=== PATIENT | male | born 1970 | race Caucasian/White ===

== ENCOUNTER → 2016-09-05 | Outpatient (CLI) | payer MEDICARE, OTHER | LOC: KOH-I 11:03 | DX: M25.512 Pain in left shoulder (principal); I10 Essential (primary) hypertension | CPT/HCPCS: 73030 ==

== ENCOUNTER → 2016-09-13 | Outpatient (CLI) | payer MEDICARE, OTHER | LOC: KOH-I 12:50 | DX: M79.2 Neuralgia and neuritis, unspecified (principal); M75.102 Unspecified rotator cuff tear or rupture of left shoulder, not specified as traumatic | CPT/HCPCS: 73221 ==

== ENCOUNTER → 2016-10-13 | Outpatient (CLI) | payer MEDICARE, OTHER | LOC: KOH-I 15:01 | DX: M54.12 Radiculopathy, cervical region (principal); M47.812 Spondylosis without myelopathy or radiculopathy, cervical region | CPT/HCPCS: 72141 ==

== ENCOUNTER → 2020-08-19 | Outpatient (CLI) | payer SELFPAY ==
[~2020-08-19] MED LIST: BAYER CHEWABLE81 MG PO; BENICAR40 MG PO; GLUCOPHAGE 500500 MG PO; HYDROCHLOROTHIA25 MG PO; LIPITOR TAB 1010 MG PO; NORVASC5 MG PO; OMEPRAZOLE20 MG PO
== END ==
LOC: KOH-I 14:13
DX: M25.572 Pain in left ankle and joints of left foot (principal); M79.672 Pain in left foot; M84.472A Pathological fracture, left ankle, initial encounter for fracture
CPT/HCPCS: 73610; 73630

== ENCOUNTER → 2020-08-26 | Outpatient (CLI) | payer SELFPAY | LOC: KOH-I 09:27 | DX: M21.962 Unspecified acquired deformity of left lower leg (principal); M65.872 Other synovitis and tenosynovitis, left ankle and foot; R93.6 Abnormal findings on diagnostic imaging of limbs | CPT/HCPCS: 73721 ==

== ENCOUNTER → 2020-10-10 | Outpatient (CLI) | payer MEDICAID ==
[2020-10-10 09:41] LABS: HEMOGLOBIN 15.2 gm/dl (14.0-17.5); WHITE BLOOD COUNT 6.1 K/UL (4.5-11.0)
[2020-10-10 10:00] LABS: BUN/CREATININE RATIO 21 (0-10)
== END ==
LOC: LAB 09:03
PROVIDERS: Nurse Practitioner Family
DX: E11.9 Type 2 diabetes mellitus without complications (principal); I10 Essential (primary) hypertension; Z71.3 Dietary counseling and surveillance
CPT/HCPCS: 36415; 80053; 80061; 84443; 85025

== ENCOUNTER → 2020-11-02 | Outpatient (CLI) | payer MEDICAID ==
[2020-11-02 08:29] LABS: HEMOGLOBIN 13.7 gm/dl (14.0-17.5); RED BLOOD COUNT 4.54 M/UL (4.20-5.50); WHITE BLOOD COUNT 5.8 K/UL (4.5-11.0)
[2020-11-02 08:51] LABS: BUN/CREATININE RATIO 20 (0-10)
== END ==
LOC: OPSV2 07:30
PROVIDERS: Podiatrist Foot & Ankle Surgery
DX: Z01.818 Encounter for other preprocedural examination (principal); Z20.822 Contact with and (suspected) exposure to COVID-19
CPT/HCPCS: 36415; 80048; 85027; 93005; U0003

== ENCOUNTER → 2020-11-05 | Day surgery (SDC) | payer MEDICAID ==
[~2020-11-05] VITALS: Ht 175.3 cm; Wt 116.1 kg
== END | disposition home or self-care (01) ==
LOC: OR 06:12
DX: M25.372 Other instability, left ankle (principal); G89.29 Other chronic pain; M94.272 Chondromalacia, left ankle and joints of left foot; L72.9 Follicular cyst of the skin and subcutaneous tissue, unspecified; I10 Essential (primary) hypertension; E11.40 Type 2 diabetes mellitus with diabetic neuropathy, unspecified; E78.5 Hyperlipidemia, unspecified; K21.9 Gastro-esophageal reflux disease without esophagitis; Z88.2 Allergy status to sulfonamides; Z79.82 Long term (current) use of aspirin; Z79.84 Long term (current) use of oral hypoglycemic drugs; Z79.899 Other long term (current) drug therapy
CPT/HCPCS: 82962; C1713; J0690; J1100; J1885; J2001; J2250; J2405; J2550; J2704; J2795; J3010; J3370; J7030; J7120

== ENCOUNTER → 2021-12-27 | Outpatient (CLI) | payer OTHER | LOC: KOH-I 13:31 | DX: M25.572 Pain in left ankle and joints of left foot (principal); S82.892D Other fracture of left lower leg, subsequent encounter for closed fracture with routine healing | CPT/HCPCS: 73610 ==

== ENCOUNTER → 2022-01-12 | Outpatient (CLI) | payer MEDICARE, OTHER | LOC: EMI 09:16 | DX: M25.572 Pain in left ankle and joints of left foot (principal); G89.29 Other chronic pain; R22.42 Localized swelling, mass and lump, left lower limb | CPT/HCPCS: 73721 ==

== ENCOUNTER → 2022-02-01 | Outpatient (CLI) | payer MEDICAID ==
[~2022-02-01] MED LIST changes: +GABAPENTIN800 MG PO
[2022-02-01 09:11] LABS: HEMOGLOBIN 14.4 gm/dl (14.0-17.5); RED BLOOD COUNT 4.76 M/UL (4.20-5.50); WHITE BLOOD COUNT 6.5 K/UL (4.5-11.0)
[2022-02-01 09:32] LABS: BUN/CREATININE RATIO 16 (0-10)
== END ==
LOC: OPSV2 01-31 08:00
PROVIDERS: Podiatrist Foot & Ankle Surgery
DX: Z01.812 Encounter for preprocedural laboratory examination (principal)
CPT/HCPCS: 80048; 83036; 85027

== ENCOUNTER 2022-02-24 07:13 | Observation (INO) | payer MEDICARE, OTHER ==
[~2022-02-24] VITALS: Ht 175.3 cm; Wt 118.8 kg
[2022-02-24] MEDS ORDERED: CEPHALEXIN500 MG PO (18:30)
[2022-02-24] MEDS ORDERED: IBU800 MG PO (18:31)
[2022-02-24] MEDS ORDERED: OXYCODONE-ACET1 EACH PO (18:33)
[2022-02-24 21:38] LABS: HEMOGLOBIN 12.7 gm/dl (14.0-17.5); RED BLOOD COUNT 4.23 M/UL (4.20-5.50); WHITE BLOOD COUNT 11.1 K/UL (4.5-11.0)
[2022-02-24 22:08] LABS: BUN/CREATININE RATIO 20 (0-10)
[2022-02-25 06:36] LABS: HEMOGLOBIN 11.6 gm/dl (14.0-17.5); RED BLOOD COUNT 3.86 M/UL (4.20-5.50); WHITE BLOOD COUNT 12.6 K/UL (4.5-11.0)
[2022-02-26 04:00] LABS: HEMOGLOBIN 11.2 gm/dl (14.0-17.5); RED BLOOD COUNT 3.71 M/UL (4.20-5.50); WHITE BLOOD COUNT 9.2 K/UL (4.5-11.0)
[2022-02-26 04:19] LABS: BUN/CREATININE RATIO 22 (0-10)
[2022-02-26] MEDS ORDERED: ENOXAPARIN40 MG/0.4 SC (10:34)
[2022-02-26] MEDS ORDERED: CALCIUM 500 +1 EACH PO (17:32)
[2022-02-27 14:10] LABS: ALKALINE PHOSPHATASE, S 83 IU/L (44-121); BONE FRACTION: 43 % (12-68); INTESTINAL FRAC.: 0 % (0-18); LIVER FRACTION: 57 % (13-88)
== END 2022-02-26 18:04 | disposition home health service (06) ==
LOC: OR 07:13 → MED SURG 4 17:18
PROVIDERS: Podiatrist Foot & Ankle Surgery; ADMIT Internal Medicine
DX: M19.072 Primary osteoarthritis, left ankle and foot (principal); M25.372 Other instability, left ankle; M21.6X2 Other acquired deformities of left foot; G89.18 Other acute postprocedural pain; I10 Essential (primary) hypertension; E78.5 Hyperlipidemia, unspecified; K21.9 Gastro-esophageal reflux disease without esophagitis; E66.01 Morbid (severe) obesity due to excess calories; E11.9 Type 2 diabetes mellitus without complications; Z68.34 Body mass index [BMI] 34.0-34.9, adult; Z79.899 Other long term (current) drug therapy; Z88.2 Allergy status to sulfonamides
CPT/HCPCS: 73610; 76000; 80048; 80053; 81001; 82962; 83735; 84075; 84080; 85025; 85027; 97116-GP-CQ; 97162; C1713; C1762; G0378; J0690; J1100; J1170; J1650; J1885; J2001; J2250; J2270; J2370; J2405; J2704; J2795; J3010; J3370

== ENCOUNTER → 2022-03-02 | Outpatient (CLI) | payer MEDICARE, OTHER ==
[~2022-03-02] MED LIST changes: +CALCIUM 500 +1 EACH PO; +CEPHALEXIN500 MG PO; +ENOXAPARIN40 MG/0.4 SC; +IBU800 MG PO; +OXYCODONE-ACET1 EACH PO
== END ==
LOC: KOH-I 09:03
DX: Z53.8 Procedure and treatment not carried out for other reasons (principal)
CPT/HCPCS: 73610